=== PATIENT | male | born 1940 | race Caucasian/White ===

== ENCOUNTER → 2016-12-03 | Outpatient (CLI) | payer OTHER ==
[2016-12-03 18:17] LABS: BASO % 0.2 %; BASO ABS # 0.02 K/uL (0-0.2); COMPLETE YES; EOS % 0.9 %; HEMATOCRIT 46.7 % (42-52); IG% 0.2 %; LYMPH % 20.6 %; MEAN CELL VOLUME 91.9 fL (80-100); MEAN CORPUSCULAR HEMOGLOBIN 32.1 pg (25-34); MEAN CORPUSCULAR HGB CONC 34.9 g/dl (32-36); MEAN PLATELET VOLUME 11.1 fL (7.4-10.4); NEUT % 66.1 %; PLATELET COUNT 171 K/uL (130-400); RED BLOOD COUNT 5.08 M/uL (4.7-6.1); WHITE BLOOD COUNT 8.73 K/uL (4.8-10.8)
[2016-12-03 18:24] LABS: ALT/SGPT 37 U/L (12-78); BLOOD UREA NITROGEN 14 mg/dl (7-18); BUN/CREATININE RATIO 14.5 (10-20); CALCIUM 9.4 mg/dl (8.5-10.1); CARBON DIOXIDE 25 mmol/L (21-32); CHLORIDE 104 mmol/L (98-107); CHOLESTEROL 187 mg/dl (0-200); CREATININE 0.99 mg/dl (0.60-1.40); GLUCOSE 127 mg/dl (70-99); POTASSIUM 4.4 mmol/L (3.5-5.1); SODIUM 138 mmol/L (136-145)
[2016-12-03 18:27] LABS: ALB/GLOB RATIO 1.1 (0.9-2); ALKALINE PHOSPHATASE 81 U/L (45-117); AST/SGOT 24 U/L (15-37); CHOLESTEROL/HDL RATIO 4.5; HDL CHOLESTEROL 42 mg/dl; LDL CHOLESTEROL CALCULATED 94 mg/dl; TRIGLYCERIDES 255 mg/dl (0-150); VERY LOW DENSITY LIPOPROT CALC 51 mg/dl
[2016-12-04 06:28] LABS: ESTIMATED AVERAGE GLUCOSE 143 mg/dl; HA1C FLAG Normal (Normal)
== END | disposition home or self-care (01) ==
LOC: C.LABSPEC 17:50
PROVIDERS: ATTEND Family Medicine
DX: E11.9 Type 2 diabetes mellitus without complications (principal); I10 Essential (primary) hypertension; E78.2 Mixed hyperlipidemia

== ENCOUNTER → 2017-06-08 | Outpatient (CLI) | payer OTHER ==
[2017-06-08 13:43] LABS: BASO % 0.3 %; BASO ABS # 0.02 K/uL (0-0.2); COMPLETE YES; EOS % 2.4 %; HEMATOCRIT 47.1 % (42-52); IG% 0.3 %; LYMPH % 22.7 %; LYMPH ABS # 1.52 K/uL (1.2-3.4); MEAN CELL VOLUME 93.6 fL (80-100); MEAN CORPUSCULAR HEMOGLOBIN 31.2 pg (25-34); MEAN CORPUSCULAR HGB CONC 33.3 g/dl (32-36); MEAN PLATELET VOLUME 11.2 fL (7.4-10.4); MONO % 13.1 %; NEUT % 61.2 %; PLATELET COUNT 145 K/uL (130-400); RED BLOOD COUNT 5.03 M/uL (4.7-6.1); WHITE BLOOD COUNT 6.71 K/uL (4.8-10.8)
[2017-06-08 14:30] LABS: ALT/SGPT 45 U/L (12-78); AST/SGOT 24 U/L (15-37); BLOOD UREA NITROGEN 15 mg/dl (7-18); BUN/CREATININE RATIO 15.2 (10-20); CALCIUM 8.9 mg/dl (8.5-10.1); CARBON DIOXIDE 24 mmol/L (21-32); CHLORIDE 107 mmol/L (98-107); GLUCOSE 155 mg/dl (70-99); POTASSIUM 4.2 mmol/L (3.5-5.1); SODIUM 138 mmol/L (136-145)
[2017-06-08 14:33] LABS: ALB/GLOB RATIO 0.9 (0.9-2); ALKALINE PHOSPHATASE 94 U/L (45-117); CHOLESTEROL 135 mg/dl (0-200); CHOLESTEROL/HDL RATIO 3.5; HDL CHOLESTEROL 39 mg/dl; TRIGLYCERIDES 410 mg/dl (0-150)
== END | disposition home or self-care (01) ==
LOC: C.LABSPEC 13:06
PROVIDERS: ATTEND Family Medicine
DX: E11.9 Type 2 diabetes mellitus without complications (principal); E78.2 Mixed hyperlipidemia; I10 Essential (primary) hypertension

== ENCOUNTER → 2017-12-07 | Outpatient (CLI) | payer OTHER ==
[2017-12-07 14:30] LABS: BASO % 0.4 %; BASO ABS # 0.03 K/uL (0-0.2); EOS % 3.2 %; EOS ABS # 0.22 K/uL (0-0.5); HEMATOCRIT 45.9 % (42-52); HEMOGLOBIN 15.6 g/dL (14.0-18.0); IG# 0.02 K/uL (0.00-0.02); LYMPH % 25.8 %; LYMPH ABS # 1.79 K/uL (1.2-3.4); MEAN CELL VOLUME 93.9 fL (80-100); MEAN CORPUSCULAR HEMOGLOBIN 31.9 pg (25-34); MEAN PLATELET VOLUME 12.1 fL (7.4-10.4); MONO % 11.7 %; MONO ABS # 0.81 K/uL (0.11-0.59); NEUT % 58.6 %; NEUT ABS # 4.06 K/uL (1.4-6.5); PLATELET COUNT 142 K/uL (130-400); RED CELL DISTRIBUTION WIDTH CV 14.4 % (11.5-14.5); RED CELL DISTRIBUTION WIDTH SD 48.8 fL (36.4-46.3); WHITE BLOOD COUNT 6.93 K/uL (4.8-10.8)
[2017-12-07 14:52] LABS: ALBUMIN 3.6 gm/dl (3.4-5.0); ALT/SGPT 41 U/L (12-78); AST/SGOT 27 U/L (15-37); BLOOD UREA NITROGEN 13 mg/dl (7-18); CALCIUM 9.2 mg/dl (8.5-10.1); CARBON DIOXIDE 26 mmol/L (21-32); CHOLESTEROL 139 mg/dl (0-200); CREATININE 1.03 mg/dl (0.60-1.40); GLUCOSE 133 mg/dl (70-99); POTASSIUM 4.5 mmol/L (3.5-5.1); SODIUM 137 mmol/L (136-145)
[2017-12-07 14:55] LABS: ALKALINE PHOSPHATASE 83 U/L (45-117); LDL CHOLESTEROL CALCULATED 53 mg/dl; TOTAL PROTEIN 7.4 gm/dl (6.4-8.2)
[2017-12-08 06:59] LABS: HEMOGLOBIN A1C 6.3 % (4.5-5.6)
== END | disposition home or self-care (01) ==
LOC: C.LABSPEC 13:05
PROVIDERS: ATTEND Family Medicine
DX: E11.9 Type 2 diabetes mellitus without complications (principal); E78.2 Mixed hyperlipidemia; I10 Essential (primary) hypertension

== ENCOUNTER 2023-06-18 22:48 | Observation (INO) ==
[2023-06-19] MEDS ORDERED: SODIUM CHLORIDE 0.9% 500 ML IV ONE (00:03)
--- NOTE | 2023-06-19 00:47 | Emergency Department Note ---
Impression & Plan Weakness, Acute alteration in mental status, Ambulatory dysfunction Admit to the [facility] ED Provider Note NAME: JOSIANE BARAJAS AGE: 82 SEX: Male INFORMANT: Patient and his niece ED PROVIDER(S): Charito Adair DO CHIEF COMPLAINT: Slurred speech; dizziness; falls PLAN: Disposition: Admit to the [facility] MEDICAL DECISION MAKING: This is an 82-year-old male patient who presents to the emergency department with increasing slurred speech, altered mental status, dizziness, and staring spells. Most of history is obtained from the patient's niece who is at the bedside. The patient was evaluated at [facility] 2 days ago and admitted there overnight. He was discharged today. During that admission, the patient did have a CT scan of his brain and cervical spine which were negative. Laboratory studies were unremarkable. He underwent carotid ultrasounds as well as echocardiogram which were both essentially unremarkable. Unfortunately, the patient's mental status seemed to decline again tonight. CT scan of the head performed again today because they were unsure if he fell again at home. This was negative. Laboratory studies revealed no leukocytosis or anemia. Glucose was 127. There was normal renal function and normal electrolytes. Urinalysis was unremarkable. I discussed the case with the [facility] and they will evaluate for further inpatient care. Care/management discussed with: The patient's niece; logistics engineering manager; [facility] Level of care consideration(s): After review of the information above and other included data, I feel the patient requires escalation of care to admission. He is unsteady on his feet and risks falling again. He does have an altered mental status at times. Triage Nursing notes: Reviewed and agree them. Vital Signs: reviewed and remarkable for bradycardia Additional History obtained from: The patient's niece who is at the bedside Chronic Medical/Social Conditions affecting care: Patient lives alone Prior /Outside records reviewed: Epic records from his admission at [facility] Differential Diagnosis: Subdural hematoma, hyponatremia, hypoglycemia, dehydration, [facility] Diagnostics, independently interpreted by me: ECG: Normal sinus rhythm at a rate of 61 with T wave inversions in the anterior leads. This was compared to an EKG from [facility]-06/17/2023. The T wave inversion is new. However, in that previous EKG, the made comment that T wave inversion had been present previously. Cardiac Monitoring: Sinus bradycardia at a rate of 58 Imaging studies: CT scan of the brain: As per stat rad HPI: 82 year old Male arrives for evaluation of altered mental status. Over the past 5-7 days, the patient has had episodes of altered mental status, slurred speech, dizziness, lightheadedness, and increased falls. Most of the history was obtained from the patient's niece who is at the bedside. She explains that the patient has had a drastic change in his mental status past 1 week. He was seen at [place] emergency department 2 days ago and admitted overnight. PAST MEDICAL HISTORY: Type 2 diabetes, hypertension, right-sided lung cancer, thoracic aortic aneurysm, SOCIAL HISTORY: Patient lives alone, he smokes pipe daily. 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 This appears to be old. Pupils are equal, round, and reactive to light. Extraocular eye muscles are intact, and sclera are anicteric. Nose - moist nasal mucosa without discharge. Mouth - moist buccal mucosa. Oropharynx is nonerythematous and there is no tonsillar exudate or edema noted. Neck: Supple; no JVD or cervical lymphadenopathy Heart: Bradycardic rate and regular rhythm. THere is a normal S1 and S2 with no murmurs, clicks, or gallops appreciated. Lungs: Clear to auscultation bilaterally with no wheezes, rales, or rhonchi. Abdomen: Soft, completely nontender, nondistended, with good bowel sounds. There are no palpable pulsatile masses or hepatosplenomegaly. There is no guarding, rigidity, or rebound noted. Extremities: No evidence of cyanosis, clubbing, or edema. There are easily palpable peripheral pulses. Skin: warm and dry with poor turgor and no rashes. Neuro: The patient is slow to answer questions. He does answer them appropriately with regards to person and place but is confused about time. He is moving all 4 extremities. His muscle strength is 5 out of 5 in all 4 extremities. Cranial nerves II through XII are intact. He has difficulty with cerebellar testing. ED course: The patient was evaluated in room B8. A complete history and physical was performed. An order was placed for continuous cardiac monitoring. The patient is in a sinus bradycardia at a rate of 58. A twelve-lead EKG was obtained as described above. Patient went for CT scan of the brain. A urine specimen was obtained. Patient was bolused with IV normal saline solution as he appeared dehydrated on physical exam. I discussed the case with the [facility] Hospitalist and they will evaluate for further inpatient care. 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 Required: No Beliefs That Will Affect Care: None Current Living Situation: Alone Feels Safe at Home: Yes Safety Concerns: Feels Safe At This Time Assistive Devices: Denture - Upper, Denture - Lower and Walker Allergies Allergies Allergy/AdvReac Type Severity Reaction Status Date / Time No Known Allergies Allergy Unverified 06/19/23 11:39 Home Meds Home Medications Medication Instructions Recorded Confirmed aspirin 81 mg tablet,delayed 81 mg PO DAILY 06/19/23 06/19/23 release insulin aspart U-100 100 unit/mL 1 sliding scale dose subcut 06/19/23 06/19/23 (3 mL) subcutaneous pen (Novolog USEASDIRECTD FlexPen U-100 Insulin aspart) insulin detemir U-100 100 unit/mL 29 unit subcut HS 06/19/23 06/19/23 subcutaneous solution (Levemir U-100 Insulin) lisinopril 5 mg tablet 5 mg PO DAILY 06/19/23 06/19/23 metoprolol tartrate 25 mg tablet 25 mg PO BID 06/19/23 06/19/23 omega 1-dwc-qek-fish oil 1,000 mg 1 cap PO DAILY 06/19/23 06/19/23 (120 mg-180 mg) capsule (Fish Oil) pravastatin 40 mg tablet 40 mg PO DAILY 06/19/23 06/19/23 Results & Data (ED) Vital Signs Vital Signs - 24 hr 06/19/23 06:04 06/19/23 06:04 06/19/23 06:04 Pulse Rate 57 L 61 Pulse Rate from SpO2 Sensor 60 Respiratory Rate 16 Blood Pressure 131/74 Blood Pressure Mean 94 Pulse Oximetry 93 06/19/23 06:10 06/19/23 06:20 06/19/23 06:30 Pulse Rate 57 L 63 Pulse Rate from SpO2 Sensor 58 L 63 Respiratory Rate 18 20 28 H Blood Pressure Blood Pressure Mean Pulse Oximetry 95 99 06/19/23 06:40 06/19/23 07:00 Pulse Rate 53 L Pulse Rate from SpO2 Sensor 54 L Respiratory Rate 22 24 Blood Pressure Blood Pressure Mean Pulse Oximetry 98 Laboratory Data 06/18/23 23:30 06/18/23 23:30 Lab Results 06/18/23 06/18/23 06/19/23 Range/Units 23:30 23:30 03:50 WBC 8.44 (4.8-10.8) K/ul RBC 4.33 L (4.70-6.10) M/uL Hgb 14.2 (14.0-18.0) g/dl Hct 39.9 L (42.0-52.0) % MCV 92.1 (80.0-100.0) fL MCH 32.8 (25.0-34.0) pg MCHC 35.6 (32.0-36.0) g/dL RDW Std Deviation 44.7 (36.4-46.3) fL RDW Coeff of Lexie 13.2 (11.5-14.5) % Plt Count 157 (130-400) K/uL MPV 11.9 (9.4-12.4) fL Immature Gran % (Auto) 0.4 % Neut % (Auto) 61.6 % Lymph % (Auto) 24.5 % [place] % (Auto) 12.0 % Eos % (Auto) 1.1 % Baso % (Auto) 0.4 % Neut # (Auto) 5.21 (1.40-6.50) K/uL Lymph # (Auto) 2.07 (1.20-3.40) K/uL [place] # (Auto) 1.01 H (0.11-0.59) K/uL Eos # (Auto) 0.09 (0.00-0.50) K/uL Baso # (Auto) 0.03 (0.00-0.20) K/uL Immature Gran # (Auto) 0.03 (0.01-0.20) K/uL Sodium 133 L (136-145) mmol/L Potassium 3.8 (3.5-5.1) mmol/L Chloride 103 (98-107) mmol/L Carbon Dioxide 21 (21-32) mmol/L Anion Gap 9 (3-11) BUN 17 (6-23) mg/dl Creatinine 0.88 (0.6-1.4) mg/dl Est Cr Clr Drug Dosing Not Reportable Est GFR ( Amer) 94.0 ml/min Est GFR (Non-Af Amer) 81.1 ml/min BUN/Creatinine Ratio 19.3 (10-20) Glucose 187 H (70-99(Fasting)) mg/dl Calcium 9.1 (8.6-10.3) mg/dl Total Bilirubin 0.5 (0.2-1.0) mg/dl AST 35 (13-39) U/L ALT 34 (7-52) U/L Alkaline Phosphatase 89 (34-104) U/L Total Protein 6.5 (6.0-8.3) gm/dl Albumin 3.6 (3.4-5.0) gm/dl Globulin 2.9 (2.5-4.0) gm/dl Albumin/Globulin Ratio 1.2 (0.9-2) Urine Color Yellow Urine Appearance Clear (Clear) Urine pH 5.0 (4.5-7.5) Ur Specific Slemp 1.010 (1.000-1.030) Urine Protein Negative (Negative) Urine Glucose (UA) Negative (Negative) Urine Ketones Negative (Negative) Urine Blood Negative (Negative) Urine Nitrite Negative (Negative) Urine Bilirubin Negative (Negative) Urine Urobilinogen Negative (Negative) Ur Leukocyte Esterase Negative (Negative) Administered Medications Aspirin (Aspirin 81 Mg Ectab) 81 mg PO DAILY [facility] Stop: 07/19/23 09:32 Last Admin: 06/19/23 13:27 Dose: 81 mg Documented By: CAMILLE Insulin Aspart (Insulin Aspart Per Unit Charge) 0 units SC ACHS PRINCE Stop: 07/19/23 09:32 Last Admin: 06/19/23 20:26 Dose: Not Given Documented By: Admin: 06/19/23 18:03 Dose: 3 units Documented By: CAMILLE Co-signed By: RYAN Admin: 06/19/23 13:06 Dose: Not Given Documented By: Admin: 06/19/23 11:41 Dose: Not Given Documented By: CAMILLE Insulin Glargine (Lantus Per Unit Charge) 29 units SQ HS PRINCE Stop: 07/19/23 20:59 Last Admin: 06/19/23 21:54 Dose: 29 units Documented By: VINOD Co-signed By: JONATHAN Lisinopril (Lisinopril 5 Mg Tab) 5 mg PO DAILY PRINCE Stop: 07/19/23 09:32 Last Admin: 06/19/23 13:27 Dose: 5 mg Documented By: CAMILLE Metoprolol Tartrate (Metoprolol Tartrate 25 Mg Tab) 25 mg PO BID PRINCE Stop: 07/19/23 09:32 Last Admin: 06/19/23 21:55 Dose: Not Given Documented By: Admin: 06/19/23 13:27 Dose: 25 mg Documented By: CAMILLE Pravastatin Sodium (Pravastatin Sod 40 Mg Tab) 40 mg PO DAILY PRINCE Stop: 07/19/23 09:32 Last Admin: 06/19/23 13:27 Dose: 40 mg Documented By: CAMILLE Trazodone HCl (Trazodone Hcl 100 Mg Tab) 200 mg PO HS PRINCE Stop: 07/19/23 20:59 Last Admin: 06/19/23 21:55 Dose: 200 mg Documented By: VINOD Discontinued Medications Gadobutrol (Gadobutrol 65ml Vial) 8.1 ml IV ONCE ONE Stop: 06/19/23 10:46 Last Admin: 06/19/23 10:44 Dose: 8.1 ml Documented By: HIEN Sodium Chloride (Nss) 500 mls @ 999 mls/hr IV .Q31M ONE Stop: 06/19/23 00:33 Last Infusion: 06/19/23 01:12 Dose: 0 mls/hr Documented By: Admin: 06/19/23 00:37 Dose: 999 mls/hr Documented By: JAVON Sodium Chloride (Nss) 1,000 mls @ 75 mls/hr IV .[id number] PRINCE Stop: 06/19/23 22:52 Last Infusion: 06/20/23 02:06 Dose: 0 mls/hr Documented By: Infusion: 06/20/23 02:05 Dose: 0 mls/hr Documented By: Infusion: 06/19/23 14:58 Dose: 75 mls/hr Documented By: Infusion: 06/19/23 13:35 Dose: 0 mls/hr Documented By: Admin: 06/19/23 11:25 Dose: 75 mls/hr Documented By: CAMILLE Miscellaneous Information (Patient's Allergy Info Needs Entered) 1 each N/A Q30M PRINCE Stop: 07/19/23 09:44 Last Admin: 06/19/23 13:29 Dose: Not Given Documented By: Admin: 06/19/23 13:29 Dose: Not Given Documented By: Admin: 06/19/23 13:29 Dose: Not Given Documented By: Admin: 06/19/23 13:29 Dose: Not Given Documented By: Admin: 06/19/23 13:29 Dose: Not Given Documented By: Admin: 06/19/23 13:29 Dose: Not Given Documented By: Admin: 06/19/23 13:27 Dose: 1 each Documented By: Admin: 06/19/23 11:39 Dose: 1 each Documented By: CAMILLE Imaging Data Radiologist's Impression: Head CT 06/19/23 00:03 Exam(s): CT HEAD Without Contrast EXAM: CT Head Without Intravenous Contrast CLINICAL HISTORY: altered mental status; h/o falls. TECHNIQUE: Axial computed tomography images of the head/brain without intravenous contrast. CTDI is 36.62 mGy and DLP is 625.8 mGy-cm. Automated exposure control was utilized for the study. A dose lowering technique was utilized adhering to the principles of ALARA. COMPARISON: No relevant prior studies available. FINDINGS: Brain: Underlying parenchymal involutional changes are noted with prominence of the cerebral sulci and sylvian fissures. There is predominantly periventricular deep white matter hypodense changes noted bilaterally. No intracranial hemorrhage. No significant mass effect. No evidence for cortical infarct. Ventricles: Unremarkable. No ventriculomegaly. Bones/joints: Unremarkable. No acute fracture. Soft tissues: No significant overlying acute traumatic soft tissue abnormality identified. Sinuses: Unremarkable as visualized. No acute sinusitis. Mastoid air cells: Unremarkable as visualized. No mastoid effusion. IMPRESSION: No acute intracranial process identified. Electronically signed by: Anthony Bedolla MD 06/19/23 02:54 AM Discharge Plan Visit Data Chief Complaint: TIA Symptoms Stated Complaint: SLURRED SPEACH, LOSS OF BALANCE ED Provider: Charito Adair Discharge Problem: Weakness, Acute alteration in mental status, Ambulatory dysfunction Patient Disposition: Admitted As Inpatient Discharge Instructions Interventions: ED Discharge Assessment Last Done: 06/19/23 09:33
[2023-06-19 00:49] LABS: Basophils # (auto) 0.03 K/uL (0.00-0.20); Basophils % (auto) 0.4 %; Eosinophils # (auto) 0.09 K/uL (0.00-0.50); Eosinophils % (auto) 1.1 %; Hematocrit (blood only) 39.9 % (42.0-52.0); Hemoglobin 14.2 g/dl (14.0-18.0); Immature Granulocytes # (auto) 0.03 K/uL (0.01-0.20); Immature Granulocytes % (auto) 0.4 %; Lymphocytes # (auto) 2.07 K/uL (1.20-3.40); Lymphocytes % (auto) 24.5 %; Mean Corpuscular Hemoglobin 32.8 pg (25.0-34.0); Mean Corpuscular Hgb Conc 35.6 g/dL (32.0-36.0); Mean Corpuscular Volume 92.1 fL (80.0-100.0); Mean Platelet Volume 11.9 fL (9.4-12.4); Monocytes # (auto) 1.01 K/uL (0.11-0.59); Neutrophils # (auto) 5.21 K/uL (1.40-6.50); Neutrophils % (auto) 61.6 %; Platelet Count 157 K/uL (130-400); RDW Coefficient of Variation 13.2 % (11.5-14.5); RDW Standard Deviation 44.7 fL (36.4-46.3); Red Blood Count 4.33 M/uL (4.70-6.10); White Blood Count 8.44 K/ul (4.8-10.8)
--- NOTE | 2023-06-19 02:55 | CT Scan Report ---
Exam(s): CT HEAD Without Contrast EXAM: CT Head Without Intravenous Contrast CLINICAL HISTORY: altered mental status; h/o falls. TECHNIQUE: Axial computed tomography images of the head/brain without intravenous contrast. CTDI is 36.62 mGy and DLP is 625.8 mGy-cm. Automated exposure control was utilized for the study. A dose lowering technique was utilized adhering to the principles of ALARA. COMPARISON: No relevant prior studies available. FINDINGS: Brain: Underlying parenchymal involutional changes are noted with prominence of the cerebral sulci and sylvian fissures. There is predominantly periventricular deep white matter hypodense changes noted bilaterally. No intracranial hemorrhage. No significant mass effect. No evidence for cortical infarct. Ventricles: Unremarkable. No ventriculomegaly. Bones/joints: Unremarkable. No acute fracture. Soft tissues: No significant overlying acute traumatic soft tissue abnormality identified. Sinuses: Unremarkable as visualized. No acute sinusitis. Mastoid air cells: Unremarkable as visualized. No mastoid effusion. IMPRESSION: No acute intracranial process identified. Electronically signed by: Anthony Bedolla MD 06/19/23 02:54 AM
[2023-06-19 03:20] LABS: Potassium 3.8 mmol/L (3.5-5.1)
[2023-06-19 03:25] LABS: Aspartate Aminotransferase 35 U/L (13-39)
[2023-06-19 03:40] LABS: Alanine Aminotransferase 34 U/L (7-52); Albumin Globulin Ratio 1.2 (0.9-2); Albumin Level 3.6 gm/dl (3.4-5.0); Alkaline Phosphatase 89 U/L (34-104); Anion Gap 9 (3-11); BUN Creatinine Ratio 19.3 (10-20); Bilirubin,Total 0.5 mg/dl (0.2-1.0); Blood Urea Nitrogen 17 mg/dl (6-23); Calcium 9.1 mg/dl (8.6-10.3); Carbon Dioxide 21 mmol/L (21-32); Chloride 103 mmol/L (98-107); Est GFR (Non-African American) 81.1 ml/min; Globulin 2.9 gm/dl (2.5-4.0); Glucose 187 mg/dl (70-99(Fasting)); Sodium 133 mmol/L (136-145); Total Protein 6.5 gm/dl (6.0-8.3)
[2023-06-19 04:15] LABS: Appearance Urine Clear (Clear); Bilirubin Urine Negative (Negative); Blood Urine Negative (Negative); Color Urine Yellow; Glucose Urine UA Negative (Negative); Ketones Urine Negative (Negative); Leukocyte Esterase Urine Negative (Negative); Nitrite Urine Negative (Negative); Protein Urine Negative (Negative); Urobilinogen Urine Negative (Negative)
--- NOTE | 2023-06-19 09:13 | History & Physical Report ---
Date of Service June 19, 2023 Assessment & Plan (1) Imbalance: Plan: 82-year-old male with past medical significant for type 2 diabetes, lung cancer, thoracic aortic aneurysm, hypertension, tobacco use, ambulate dysfunction, lives alone at home ambulates with a walker sister and nieces lives close by is brought in by niece because of frequent falls and imbalance. Imbalance frequent falls Recently was in [facility], work-up unremarkable with CT head, carotid Doppler and echo We will get MRI head PT OT If any findings on MRI scan or if no improvement will consult neurology On aspirin Close monitor Type 2 diabetes On Levemir Insulin sliding scale We will monitor Hypertension on lisinopril and metoprolol We will monitor Hyperlipidemia On statin Lung cancer Following with [facility] under observation DVT prophylaxis SCDs Disposition med/telemetry Full code History of Present Illness Chief Complaint: Falls and imbalance Primary Care Provider: Juanito De Dios DO 82-year-old male with past medical significant for type 2 diabetes, lung cancer, thoracic aortic aneurysm, hypertension, tobacco use, ambulate dysfunction, lives alone at home ambulates with a walker sister and nieces lives close by is brought in by niece because of frequent falls and imbalance. Patient was admitted to [facility] on June 17 and discharged on June for similar problem. Looks like he fell 5 times in the last past 1 week seem while standing gets lightheaded and becomes off balance and falls. Hit his head but no loss of consciousness. At [facility] had CT head, carotid Doppler and echo which were unremarkable. Seen by cardiology and neurology and plan for Zio patch as outpatient. Got discharged but his symptoms did not improve. Says is not ambulating much because of the imbalance and falls. Initially had some difficulty speaking. Currently patient speech seems okay. No headache. No runny nose or sore throat. No difficulty swallowing. Appetite is good. No fevers. No chest pain or shortness of breath. No nausea or vomiting. No abdom inal pain. Normal bowel and bladder movements. Past medical history. As mentioned above Past surgical history. No surgical history on file Social history. Smokes pipe. No alcohol. No drug use. Family history. Sister had AAA. Brother had lower extremity aneurysm. Home Medications Medication Instructions Recorded Confirmed Type aspirin 81 mg tablet,delayed 81 mg PO DAILY 06/19/23 06/19/23 History release insulin aspart U-100 100 unit/mL 1 sliding scale dose subcut 06/19/23 06/19/23 History (3 mL) subcutaneous pen (Novolog USEASDIRECTD FlexPen U-100 Insulin aspart) insulin detemir U-100 100 unit/mL 29 unit subcut HS 06/19/23 06/19/23 History subcutaneous solution (Levemir U-100 Insulin) lisinopril 5 mg tablet 5 mg PO DAILY 06/19/23 06/19/23 History metoprolol tartrate 25 mg tablet 25 mg PO BID 06/19/23 06/19/23 History omega 1-bnt-njm-fish oil 1,000 mg 1 cap PO DAILY 06/19/23 06/19/23 History (120 mg-180 mg) capsule (Fish Oil) pravastatin 40 mg tablet 40 mg PO DAILY 06/19/23 06/19/23 History Past Med/Surg History Social History Smoking Status: Never smoker Preferred Language: Czech Feels Safe at Home: Yes Review of Systems Review of Systems: All systems reviewed & are unremarkable except as noted in HPI & below Physical Exam Physical Exam: General- Not in distress Head- atraumatic Eyes- PERRL.EMOI ENT- oropharynx clear Neck- supple, no JVD. Lungs- clear to auscultation no wheezing or crackles. Heart- regular rhythm; no murmur, no gallop. Abdomen- normal bowel sounds, soft, nontender, no distension Extremities- no pretibial edema, no erythema seen. Neuro- alert, oriented x 3; PERRL, EOMI; no facial palsy; no dysarthria; motor 5/5 bilaterally; no pronator drift, co-ordination of movements normal. sensations intact. Skin- warm & dry Results & Data Results & Data Vital Signs (Past 12 Hours) Vital Signs Temp Pulse Pulse Resp BP BP Pulse Ox 06/19/23 06:40 53 L 22 98 06/19/23 06:30 63 28 H 99 06/19/23 06:20 57 L 20 95 06/19/23 06:10 18 06/19/23 06:04 61 16 93 06/19/23 06:04 131/74 06/19/23 06:00 67 17 91 06/19/23 05:50 60 17 06/19/23 05:40 55 L 20 92 06/19/23 05:30 55 L 17 94 06/19/23 05:20 57 L 21 94 06/19/23 05:10 58 L 22 95 06/19/23 05:00 23 94 06/19/23 04:50 54 L 20 93 06/19/23 04:40 56 L 20 94 06/19/23 04:30 59 L 16 96 06/19/23 04:20 52 L 19 95 06/19/23 04:10 53 L 17 96 06/19/23 04:00 55 L 22 94 06/19/23 03:50 54 L 15 95 06/19/23 03:40 51 L 15 96 06/19/23 03:30 56 L 24 96 06/19/23 03:20 53 L 18 95 06/19/23 03:10 54 L 23 95 06/19/23 03:00 57 L 16 95 06/19/23 02:50 57 L 21 96 06/19/23 02:43 56 L 24 95 06/19/23 02:43 114/72 06/19/23 02:40 57 L 14 96 06/19/23 02:30 53 L 19 95 06/19/23 02:20 54 L 16 96 06/19/23 02:10 54 L 19 96 06/19/23 02:00 54 L 18 94 06/19/23 01:50 53 L 22 95 06/19/23 01:40 64 21 94 06/19/23 01:30 55 L 24 96 06/19/23 01:20 54 L 19 93 06/19/23 01:10 60 16 97 06/19/23 01:00 56 L 21 94 06/19/23 00:50 55 L 21 92 06/19/23 00:40 58 L 22 93 06/19/23 00:33 131 H 19 06/19/23 00:20 56 L 22 95 06/19/23 00:10 63 22 93 06/19/23 00:00 59 L 24 100 06/18/23 23:50 60 24 94 06/18/23 23:40 61 26 H 92 06/18/23 23:31 58 L 21 91 06/19/23 06:04 57 L 06/19/23 06:00 59 L 16 91 06/19/23 04:00 58 L 16 114/72 98 06/19/23 02:30 57 L 20 114/72 97 06/19/23 00:53 59 L 18 136/83 94 06/18/23 23:31 58 L 06/18/23 22:51 36.5 C 69 16 123/78 95 O2 Del Method 06/19/23 06:40 06/19/23 06:30 06/19/23 06:20 06/19/23 06:10 06/19/23 06:04 06/19/23 06:04 06/19/23 06:00 06/19/23 05:50 06/19/23 05:40 06/19/23 05:30 06/19/23 05:20 06/19/23 05:10 06/19/23 05:00 06/19/23 04:50 06/19/23 04:40 06/19/23 04:30 06/19/23 04:20 06/19/23 04:10 06/19/23 04:00 06/19/23 03:50 06/19/23 03:40 06/19/23 03:30 06/19/23 03:20 06/19/23 03:10 06/19/23 03:00 06/19/23 02:50 06/19/23 02:43 06/19/23 02:43 06/19/23 02:40 06/19/23 02:30 06/19/23 02:20 06/19/23 02:10 06/19/23 02:00 06/19/23 01:50 06/19/23 01:40 06/19/23 01:30 06/19/23 01:20 06/19/23 01:10 06/19/23 01:00 06/19/23 00:50 06/19/23 00:40 06/19/23 00:33 06/19/23 00:20 06/19/23 00:10 06/19/23 00:00 06/18/23 23:50 06/18/23 23:40 06/18/23 23:31 06/19/23 06:04 06/19/23 06:00 Room Air 06/19/23 04:00 Room Air 06/19/23 02:30 Room Air 06/19/23 00:53 Room Air 06/18/23 23:31 06/18/23 22:51 Room Air Diagnostic Findings Laboratory Results WBC 8.44 K/ul (4.8-10.8) 06/18/23 23:30 RBC 4.33 M/uL (4.70-6.10) L 06/18/23 23:30 Hgb 14.2 g/dl (14.0-18.0) 06/18/23 23:30 Hct 39.9 % (42.0-52.0) L 06/18/23 23:30 MCV 92.1 fL (80.0-100.0) 06/18/23 23:30 MCH 32.8 pg (25.0-34.0) 06/18/23 23: MCHC 35.6 g/dL (32.0-36.0) 06/18/23 23:30 RDW Std Deviation 44.7 fL (36.4-46.3) 06/18/23 23:30 RDW Coeff of Lexie 13.2 % (11.5-14.5) 06/18/23 23: Plt Count 157 K/uL (130-400) 06/18/23 23: MPV 11.9 fL (9.4-12.4) 06/18/23 23:30 Immature Gran % (Auto) 0.4 % 06/18/23 23: Neut % (Auto) 61.6 % 06/18/23 23:30 Lymph % (Auto) 24.5 % 06/18/23 23:30 Dillon % (Auto) 12.0 % 06/18/23 23: Eos % (Auto) 1.1 % 06/18/23 23: Baso % (Auto) 0.4 % 06/18/23 23:30 Neut # (Auto) 5.21 K/uL (1.40-6.50) 06/18/23 23:30 Lymph # (Auto) 2.07 K/uL (1.20-3.40) 06/18/23 23:30 Dillon # (Auto) 1.01 K/uL (0.11-0.59) H 06/18/23 23:30 Eos # (Auto) 0.09 K/uL (0.00-0.50) 06/18/23 23:30 Baso # (Auto) 0.03 K/uL (0.00-0.20) 06/18/23 23:30 Immature Gran # (Auto) 0.03 K/uL (0.01-0.20) 06/18/23 23:30 Sodium 133 mmol/L (136-145) L 06/18/23 23:30 Potassium 3.8 mmol/L (3.5-5.1) 06/18/23 23:30 Chloride 103 mmol/L (98-107) 06/18/23 23:30 Carbon Dioxide 21 mmol/L (21-32) 06/18/23 23:30 Anion Gap 9 (3-11) 06/18/23 23:30 BUN 17 mg/dl (6-23) 06/18/23 23:30 Creatinine 0.88 mg/dl (0.6-1.4) 06/18/23 23:30 Est Cr Clr Drug Dosing Not Reportable 06/18/23 23:30 Est GFR ( Amer) 94.0 ml/min 06/18/23 23:30 Est GFR (Non-Af Amer) 81.1 ml/min 06/18/23 23:30 BUN/Creatinine Ratio 19.3 (10-20) 06/18/23 23:30 Glucose 187 mg/dl (70-99(Fasting)) H 06/18/23 23:30 Calcium 9.1 mg/dl (8.6-10.3) 06/18/23 23:30 Total Bilirubin 0.5 mg/dl (0.2-1.0) 06/18/23 23:30 AST 35 U/L (13-39) 06/18/23 23:30 ALT 34 U/L (7-52) 06/18/23 23:30 Alkaline Phosphatase 89 U/L (34-104) 06/18/23 23:30 Total Protein 6.5 gm/dl (6.0-8.3) 06/18/23 23:30 Albumin 3.6 gm/dl (3.4-5.0) 06/18/23 23:30 Globulin 2.9 gm/dl (2.5-4.0) 06/18/23 23:30 Albumin/Globulin Ratio 1.2 (0.9-2) 06/18/23 23:30 Urine Color Yellow 06/19/23 03:50 Urine Appearance Clear (Clear) 06/19/23 03:50 Urine pH 5.0 (4.5-7.5) 06/19/23 03:50 Ur Specific [place] 1.010 (1.000-1.030) 06/19/23 03:50 Urine Protein Negative (Negative) 06/19/23 03:50 Urine Glucose (UA) Negative (Negative) 06/19/23 03:50 Urine Ketones Negative (Negative) 06/19/23 03:50 Urine Blood Negative (Negative) 06/19/23 03:50 Urine Nitrite Negative (Negative) 06/19/23 03:50 Urine Bilirubin Negative (Negative) 06/19/23 03:50 Urine Urobilinogen Negative (Negative) 06/19/23 03:50 Ur Leukocyte Esterase Negative (Negative) 06/19/23 03:[address] 06/19/23 00:03 Exam(s): CT HEAD Without Contrast EXAM: CT Head Without Intravenous Contrast CLINICAL HISTORY: altered mental status; h/o falls. TECHNIQUE: Axial computed tomography images of the head/brain without intravenous contrast. CTDI is 36.62 mGy and DLP is 625.8 mGy-cm. Automated exposure control was utilized for the study. A dose lowering technique was utilized adhering to the principles of ALARA. COMPARISON: No relevant prior studies available. FINDINGS: Brain: Underlying parenchymal involutional changes are noted with prominence of the cerebral sulci and sylvian fissures. There is predominantly periventricular deep white matter hypodense changes noted bilaterally. No intracranial hemorrhage. No significant mass effect. No evidence for cortical infarct. Ventricles: Unremarkable. No ventriculomegaly. Bones/joints: Unremarkable. No acute fracture. Soft tissues: No significant overlying acute traumatic soft tissue abnormality identified. Sinuses: Unremarkable as visualized. No acute sinusitis. Mastoid air cells: Unremarkable as visualized. No mastoid effusion. IMPRESSION: No acute intracranial process identified. Electronically signed by: Anthony Bedolla MD 06/19/23 02:54 AM ECG Additional Comments: ECG. Normal sinus rhythm rate of 61. Left axis deviation. Code Status & VTE Plan VTE Prophylaxis Plan VTE Prophylaxis will be ordered: Yes
[2023-06-19] MEDS ORDERED: DEXTROSE 50% 50 ML SYRINGE IV PRN (09:33)
[2023-06-19] MEDS ORDERED: GLUCOSE 10 TAB/TUBE PO PRN (09:33)
[2023-06-19] MEDS ORDERED: GLUCOSE 40% GEL 15 GM TUBE PO PRN (09:33)
[2023-06-19] MEDS ORDERED: SODIUM CHLORIDE 0.9% 1,000 ML IV SCH (09:33)
[2023-06-19] MEDS ORDERED: CARBOHYDRATES FOR HYPOGLYCEMIA PO PRN (09:33)
[2023-06-19] MEDS ORDERED: GLUCAGON FOR INJ 1 MG VIAL SQ PRN (09:33)
[2023-06-19] MEDS ORDERED: NITROGLYCERIN SL 0.4 MG/TAB TAB SL PRN (09:33)
[2023-06-19] MEDS ORDERED: POLYETHYLENE (MIRALAX) 17 GM PACK PO PRN (09:33)
--- NOTE | 2023-06-19 09:54 | Hospitalist Progress Note ---
Date of Service June 19, 2023 Assessment & Plan (1) Withdrawal syndrome: Plan: Symptoms are consistent with a trazodone withdrawal syndrome including dizziness lightheadedness vertigo fatigue. Additional symptoms including anxiety agitation confusion insomnia and irritability may be expected. We will reinstate trazodone at 200 mg starting this evening and suggested prolonged taper over 4 weeks time if he wants to come down off of this. Recommend against further use of temazepam which by itself may have symptoms including drowsiness, dizziness, lethargy hangover affect and vertigo. Both of these may be contributing to current symptoms. Avoid temazepam, reinstate trazodone with taper if desired. PT OT evaluation. Brain MRI negative ruling out stroke. (2) Frequent falls: Plan: Frequent falls are a result of the above and will hopefully improve with medication changes as planned. PT OT to assess. (3) Insomnia: Plan: [facility] De Dios in the office to discuss treatment for insomnia including behavior changes and identification of other contributing factors. (4) DMII (diabetes mellitus, type 2): Plan: Chronic stable and well-controlled. Continue insulin as ordered. (5) HTN (hypertension): Plan: Chronic, at goal. Continue lisinopril per home regimen. Lovenox Full Code Dispo-cont telemetry I spent a total [id number] coordinating, documenting, and providing care for this patient excluding time spent in the performance of separately billed services Catie Mendez DO [facility] Admission and Anticipated Discharge Date Admission Date: June 19, 2023 Subjective 82-year-old diabetic man with well-controlled diabetes presents with frequent falls and imbalance issues for the last 2 weeks. He was recently admitted to [facility] with work-up unremarkable including a CT head and carotid Doppler and an echocardiogram. He underwent an MRI of the brain this morning which was normal. He has no other strokelike symptoms present and is mentating at baseline. He ambulates with a walker at baseline. He mentions that 2 weeks ago he changed his trazodone to a new sleep aid for worsening insomnia. He was initially on trazodone 200 mg every night chronically with last fill date of 06/03. Primary care doctor then placed him on temazepam 15 mg p.o. at night but this caused him to be very dizzy and off-balance. He filled the temazepam on 06/10, approximately 9 days ago. Today at rest he denies any dizziness and reports feeling worse when he stands up. No other significant medication changes reported. Physical Exam Physical Exam: CONSTITUTIONAL: WNWD, vitals as above, generally well-appearing, NAD EYES: pupils are round and equal bilaterally, normal conjunctivae, no scleral icterus ENT: external ear and nose normal, MMM NECK: trachea midline RESPIRATORY: clear to auscultation bilaterally, no crackles, rales or wheezes, normal respiratory effort CARDIOVASCULAR: regular rate and rhythm, S1 and 2 heard without murmurs, gallops or rubs, no JVD, no peripheral edema CHEST: inspection of chest was normal GASTROINTESTINAL: normal bowel sounds, soft, nontender, ND, no guarding. MUSCULOSKELETAL: strength 5/5 throughout, head is normocephalic and atraumatic SKIN: warm and dry NEUROLOGIC: CN 2-12 grossly intact, no sensory deficit, normal cognition, normal speech, no tremor PSYCHIATRIC: alert cooperative and oriented to person, place and time. Euthymic mood, makes good eye contact, language grossly intact, recent and remote memory grossly intact. Results & Data Results & Data Vital Signs (Past 12 Hours) Vital Signs Temp Pulse Pulse Resp BP BP Pulse Ox 06/19/23 09:18 56 L 06/19/23 09:00 58 L 20 06/19/23 08:30 54 L 18 06/19/23 08:00 60 22 06/19/23 08:00 117/72 06/19/23 07:30 55 L 16 06/19/23 07:00 24 06/19/23 06:40 53 L 22 98 06/19/23 06:30 63 28 H 99 06/19/23 06:20 57 L 20 95 06/19/23 06:10 18 06/19/23 06:04 61 16 93 06/19/23 06:04 131/74 06/19/23 06:00 67 17 91 06/19/23 05:50 60 17 06/19/23 05:40 55 L 20 92 06/19/23 05:30 55 L 17 94 06/19/23 05:20 57 L 21 94 06/19/23 05:10 58 L 22 95 06/19/23 05:00 23 94 06/19/23 04:50 54 L 20 93 06/19/23 04:40 56 L 20 94 06/19/23 04:30 59 L 16 96 06/19/23 04:20 52 L 19 95 06/19/23 04:10 53 L 17 96 06/19/23 04:00 55 L 22 94 06/19/23 03:50 54 L 15 95 06/19/23 03:40 51 L 15 96 06/19/23 03:30 56 L 24 96 06/19/23 03:20 53 L 18 95 06/19/23 03:10 54 L 23 95 06/19/23 03:00 57 L 16 95 06/19/23 02:50 57 L 21 96 06/19/23 02:43 56 L 24 95 06/19/23 02:43 114/72 06/19/23 02:40 57 L 14 96 06/19/23 02:30 53 L 19 95 06/19/23 02:20 54 L 16 96 06/19/23 02:10 54 L 19 96 06/19/23 02:00 54 L 18 94 06/19/23 01:50 53 L 22 95 06/19/23 01:40 64 21 94 06/19/23 01:30 55 L 24 96 06/19/23 01:20 54 L 19 93 06/19/23 01:10 60 16 97 06/19/23 01:00 56 L 21 94 06/19/23 00:50 55 L 21 92 06/19/23 00:40 58 L 22 93 06/19/23 00:33 131 H 19 06/19/23 00:20 56 L 22 95 06/19/23 00:10 63 22 93 06/19/23 00:00 59 L 24 100 06/18/23 23:50 60 24 94 06/18/23 23:40 61 26 H 92 06/18/23 23:31 58 L 21 91 06/19/23 06:04 57 L 06/19/23 06:00 59 L 16 91 06/19/23 04:00 58 L 16 114/72 98 06/19/23 02:30 57 L 20 114/72 97 06/19/23 00:53 59 L 18 136/83 94 06/18/23 23:31 58 L 06/18/23 22:51 36.5 C 69 16 123/78 95 O2 Del Method 06/19/23 09:18 10/14/23 09:00 06/19/23 08:30 06/19/23 08:00 06/19/23 08:00 06/19/23 07:30 06/19/23 07:00 06/19/23 06:40 06/19/23 06:30 06/19/23 06:20 06/19/23 06:10 06/19/23 06:04 06/19/23 06:04 06/19/23 06:00 06/19/23 05:50 06/19/23 05:40 06/19/23 05:30 06/19/23 05:20 06/19/23 05:10 06/19/23 05:00 06/19/23 04:50 06/19/23 04:40 06/19/23 04:30 06/19/23 04:20 06/19/23 04:10 06/19/23 04:00 06/19/23 03:50 06/19/23 03:40 06/19/23 03:30 06/19/23 03:20 06/19/23 03:10 06/19/23 03:00 06/19/23 02:50 06/19/23 02:43 06/19/23 02:43 06/19/23 02:40 06/19/23 02:30 06/19/23 02:20 06/19/23 02:10 06/19/23 02:00 06/19/23 01:50 06/19/23 01:40 06/19/23 01:30 06/19/23 01:20 06/19/23 01:10 06/19/23 01:00 06/19/23 00:50 06/19/23 00:40 06/19/23 00:33 06/19/23 00:20 06/19/23 00:10 06/19/23 00:00 06/18/23 23:50 06/18/23 23:40 06/18/23 23:31 06/19/23 06:04 06/19/23 06:00 Room Air 06/19/23 04:00 Room Air 06/19/23 02:30 Room Air 06/19/23 00:53 Room Air 06/18/23 23:31 06/18/23 22:51 Room Air Laboratory Results Short CBC 06/18/23 Range/Units 23:30 WBC 8.44 (4.8-10.8) K/ul Hgb 14.2 (14.0-18.0) g/dl Hct 39.9 L (42.0-52.0) % Plt Count 157 (130-400) K/uL BMP 06/18/23 23:30 Sodium 133 L Potassium 3.8 Chloride 103 Carbon Dioxide 21 BUN 17 Creatinine 0.88 Glucose 187 H Calcium 9.1 Liver Function 06/18/23 Range/Units 23:30 Total Bilirubin 0.5 (0.2-1.0) mg/dl AST 35 (13-39) U/L ALT 34 (7-52) U/L Alkaline Phosphatase 89 (34-104) U/L Albumin 3.6 (3.4-5.0) gm/dl Urine 06/19/23 Range/Units 03:50 Urine Color Yellow Urine Appearance Clear (Clear) Urine pH 5.0 (4.5-7.5) Ur Specific [place] 1.010 (1.000-1.030) Urine Protein Negative (Negative) Urine Glucose (UA) Negative (Negative) Diagnostic Findings Head CT 06/19/23 00:03 Exam(s): CT HEAD Without Contrast EXAM: CT Head Without Intravenous Contrast CLINICAL HISTORY: altered mental status; h/o falls. TECHNIQUE: Axial computed tomography images of the head/brain without intravenous contrast. CTDI is 36.62 mGy and DLP is 625.8 mGy-cm. Automated exposure control was utilized for the study. A dose lowering technique was utilized adhering to the principles of ALARA. COMPARISON: No relevant prior studies available. FINDINGS: Brain: Underlying parenchymal involutional changes are noted with prominence of the cerebral sulci and sylvian fissures. There is predominantly periventricular deep white matter hypodense changes noted bilaterally. No intracranial hemorrhage. No significant mass effect. No evidence for cortical infarct. Ventricles: Unremarkable. No ventriculomegaly. Bones/joints: Unremarkable. No acute fracture. Soft tissues: No significant overlying acute traumatic soft tissue abnormality identified. Sinuses: Unremarkable as visualized. No acute sinusitis. Mastoid air cells: Unremarkable as visualized. No mastoid effusion. IMPRESSION: No acute intracranial process identified. Electronically signed by: Anthony Bedolla MD 06/19/23 02:54 AM Medications Administered Current Inpatient Medications Acetaminophen (Acetaminophen 325 Mg Tab) 650 mg PO Q4H PRN PRN Reason: Pain or Fever Stop: 07/19/23 09:32 Aspirin (Aspirin 81 Mg Ectab) 81 mg PO DAILY [facility] Stop: 07/19/23 09:32 Dextrose (Dextrose 50% 50 Ml Syringe) 25 - 50 ml IV UD PRN; Protocol PRN Reason: Hypoglycemia Protocol Stop: 07/19/23 09:32 Glucagon (Glucagon For Inj 1 Mg Vial) 1 mg SQ UD PRN; Protocol PRN Reason: Hypoglycemia Protocol Stop: 07/19/23 09:32 Glucose (Glucose 10 Tab/Tube) 4 - 8 tab PO UD PRN; Protocol PRN Reason: Hypoglycemia Treatment Stop: 07/19/23 09:32 Glucose (Glucose 40% Gel 15 Gm Tube) 15 - 30 gm PO UD PRN; Protocol PRN Reason: Hypoglycemia Protocol Stop: 07/19/23 09:32 Sodium Chloride (Nss) 1,000 mls @ 75 mls/hr IV .[id number] [facility] Stop: 06/19/23 22:52 Insulin Aspart (Insulin Aspart Per Unit Charge) 0 units SC ACHS [facility] Stop: 07/19/23 09:32 Lisinopril (Lisinopril 5 Mg Tab) 5 mg PO DAILY [facility] Stop: 07/19/23 09:32 Metoprolol Tartrate (Metoprolol Tartrate 25 Mg Tab) 25 mg PO BID [facility] Stop: 07/19/23 09:32 Miscellaneous (Carbohydrates For Hypoglycemia ) 15 - 30 gm PO UD PRN PRN Reason: Hypoglycemia Protocol Stop: 07/19/23 09:32 Miscellaneous Information (Patient's Allergy Info Needs Entered) 1 each N/A Q30M [facility] Stop: 07/19/23 09:44 Nitroglycerin (Nitroglycerin Sl 0.4 Mg/Tab Tab) 0.4 mg SL Q5M PRN PRN Reason: Chest Pain Stop: 07/19/23 09:32 Non-Formulary Medication (Insulin Detemir U-100 [Levemir U-100 Insulin]) 29 units SQ HS [facility] Stop: 07/19/23 20:59 Polyethylene Glycol (Polyethylene (Miralax) 17 Gm Pack) 17 gm PO DAILY PRN PRN Reason: Constipation Stop: 07/19/23 09:32 Pravastatin Sodium (Pravastatin Sod 40 Mg Tab) 40 mg PO DAILY [facility] Stop: 07/19/23 09:32
[2023-06-19] MEDS ORDERED: GADOBUTROL 65ML VIAL IV ONE (10:45)
--- NOTE | 2023-06-19 11:18 | Magnetic Resonance Report ---
MR brain wo/w con CLINICAL HISTORY: imbalance, stroke like symptoms TECHNIQUE: Multiplanar and multisequence MR images of the brain were obtained prior to and following administration of gadolinium contrast. Comparison: None available at the time of this dictation. FINDINGS: No abnormal restricted diffusion is identified. The white matter is unremarkable. The ventricular sys tem is normal in appearance. No mass or abnormal enhancement is seen. There is no mass effect or midl ine shift. There is no evidence of acute intraparenchymal hemorrhage. No extra axial fluid collection s are seen. The corpus callosum, pituitary gland, and cerebellar tonsils appear grossly unremarkable. Flow voids of the major intracranial arterial vessels are identified. The imaged portions of the para nasal sinuses, mastoid air cells, and orbits are unremarkable. IMPRESSION: No acute abnormalities. ACT 112: Negative or not required by law. Electronically signed by: Cas Demarco M.D. 06/19/2023 11:15 AM
[2023-06-19] MEDS: Patient's ALLERGY Info needs ENTERED SCH ×3 (11:39→13:29)
[2023-06-19] MEDS: INSULIN ASPART PER UNIT CHARGE SC SCH ×4 (11:41→20:26)
[2023-06-19] MEDS: lisinopril 5 MG TAB PO SCH (13:27)
[2023-06-19] MEDS: PRAVASTATIN SOD 40 MG TAB PO SCH (13:27)
[2023-06-19] MEDS: METOPROLOL TARTRATE 25 MG TAB PO SCH ×2 (13:27→21:55)
[2023-06-19] MEDS: ASPIRIN 81 MG ECTAB PO SCH (13:27)
[2023-06-19] MEDS: LANTUS PER UNIT CHARGE SQ SCH (21:54)
[2023-06-19] MEDS: traZODone HCL 100 MG TAB PO SCH (21:55)
[2023-06-20 06:03] LABS: Basophils # (auto) 0.03 K/uL (0.00-0.20); Basophils % (auto) 0.5 %; Eosinophils # (auto) 0.08 K/uL (0.00-0.50); Eosinophils % (auto) 1.2 %; Hematocrit (blood only) 38.3 % (42.0-52.0); Hemoglobin 13.5 g/dl (14.0-18.0); Immature Granulocytes # (auto) 0.02 K/uL (0.01-0.20); Immature Granulocytes % (auto) 0.3 %; Lymphocytes # (auto) 1.61 K/uL (1.20-3.40); Lymphocytes % (auto) 24.4 %; Mean Corpuscular Hemoglobin 32.5 pg (25.0-34.0); Mean Corpuscular Hgb Conc 35.2 g/dL (32.0-36.0); Mean Corpuscular Volume 92.1 fL (80.0-100.0); Mean Platelet Volume 10.7 fL (9.4-12.4); Monocytes # (auto) 0.83 K/uL (0.11-0.59); Monocytes % (auto) 12.6 %; Neutrophils # (auto) 4.02 K/uL (1.40-6.50); Platelet Count 135 K/uL (130-400); Red Blood Count 4.16 M/uL (4.70-6.10); White Blood Count 6.59 K/ul (4.8-10.8)
[2023-06-20 06:11] LABS: BUN Creatinine Ratio 20.5 (10-20); Calcium 8.8 mg/dl (8.6-10.3); Creatinine Clr Calc Pharmacy 78.1 ml/min; Est GFR (African American) 101.5 ml/min; Est GFR (Non-African American) 87.6 ml/min; Magnesium 2.1 mg/dl (1.7-2.4); Potassium 3.9 mmol/L (3.5-5.1)
--- NOTE | 2023-06-20 07:29 | Electrocardiogram Report ---
Test Reason : Blood Pressure : / mmHG Vent. Rate : 061 BPM Atrial Rate : 061 BPM P-R Int : 144 ms QRS Dur : 108 ms QT Int : 428 ms P-R-T Axes : 035 -33 017 degrees QTc Int : 430 ms Normal sinus rhythm Left axis deviation RSR' or QR pattern in V1 suggests right ventricular conduction delay T wave abnormality, consider anterior ischemia Abnormal ECG No previous ECGs available Confirmed by Rich Vargas ([id number]) on 06/20/2023 7:29:24 AM Referred By: REFERRED SELF Confirmed By:Rich Vargas
[2023-06-20] MEDS: METOPROLOL TARTRATE 25 MG TAB PO SCH ×2 (08:34→21:15)
[2023-06-20] MEDS: lisinopril 5 MG TAB PO SCH (08:34)
[2023-06-20] MEDS: ASPIRIN 81 MG ECTAB PO SCH (08:35)
[2023-06-20] MEDS: PRAVASTATIN SOD 40 MG TAB PO SCH (08:35)
[2023-06-20] MEDS: ENOXAPARIN INJ 40 MG/0.4 ML SYR SQ SCH (08:35)
[2023-06-20] MEDS: INSULIN ASPART PER UNIT CHARGE SC SCH ×4 (09:32→21:14)
[2023-06-20] MEDS: ACETAMINOPHEN 325 MG TAB PO PRN ×2 (11:52→16:27)
--- NOTE | 2023-06-20 15:51 | Hospitalist Progress Note ---
Date of Service June 20, 2023 Assessment & Plan (1) Withdrawal syndrome: Plan: Symptoms are consistent with a trazodone withdrawal syndrome including dizziness lightheadedness vertigo fatigue. Additional symptoms including anxiety agitation confusion insomnia and irritability may be expected. We will reinstate trazodone at 200 mg starting this evening and suggested prolonged taper over 4 weeks time if he wants to come down off of this. Recommend against further use of temazepam which by itself may have symptoms including drowsiness, dizziness, lethargy hangover affect and vertigo. PT OT evaluation-has been doing great with the physical therapy Denies any more withdrawal symptoms and tolerating trazodone nicely Like to be discharged tomorrow (2) Frequent falls: Plan: Frequent falls are a result of the above and will hopefully improve with medication changes as planned. PT OT to assess.-Evaluation is done (3) Insomnia: Plan: Would followup wtih Dr. De Dios in the office to discuss treatment for insomnia including behavior changes and identification of other contributing factors. Likely secondary to withdrawal symptoms from trazodone Started back when he is trazodone and has been feeling much better (4) DMII (diabetes mellitus, type 2): Plan: Chronic stable and well-controlled. Continue insulin as ordered. (5) HTN (hypertension): Plan: Chronic, at goal. Continue lisinopril per home regimen. Lovenox Full Code Dispo-cont telemetry I spent a total [id number] coordinating, documenting, and providing care for this patient excluding time spent in the performance of separately billed services [facility] and Anticipated Discharge Date Admission Date: June 19, 2023 Subjective 06/20/2023 The patient was seen and examined in medical telemetry unit He has had his breakfast and had physical therapy this morning During my examination he was sleeping without any acute symptoms on asking question Review of Systems Review of Systems: All systems reviewed and are unremarkable except as noted below Physical Exam Physical Exam: Lying in bed without any apparent distress Constitutional: well developed, well nourished and + obese Eyes: PERRL, conjunctivae normal, anicteric sclerae ENMT: external ear and nose normal, oropharynx normal Neck: trachea midline, no thyromegaly Respiratory: no respiratory distress Auscultation: lungs clear to auscultation bilaterally Cardiovascular: Rate/Rhythm: regular rate and regular rhythm; not tachycardic Heart Sounds: normal S1 and normal S2; no murmur Extremities: no edema Gastrointestinal (Abdomen): Inspection/Auscultation: normal bowel sounds; abdomen not distended Percussion/Palpation: abdomen soft; abdomen nontender Musculoskeletal: No acute arthritis involving any of the joint Neurologic: normal touch/pain/proprioception and moves all extremities; no focal motor deficits Psychiatric: A+Ox3, euthymic affect Lymphatic: no cervical or axillary lymphadenopathy Results & Data Results & Data Vital Signs (Past 12 Hours) Vital Signs Temp Pulse Pulse Resp BP Pulse Ox O2 Del Method 06/20/23 15:22 36.5 C 54 L 18 109/69 93 Room Air 06/20/23 14:04 50 L 06/20/23 11:13 36.4 C L 53 L 16 95/59 L 94 Room Air 06/20/23 07:45 36.6 C 63 16 115/72 94 Room Air 06/20/23 07:00 56 L 06/20/23 04:14 36.4 C L 59 L 20 117/69 96 Room Air Laboratory Results Short CBC 06/20/23 Range/Units 05:29 WBC 6.59 (4.8-10.8) K/ul Hgb 13.5 L (14.0-18.0) g/dl Hct 38.3 L (42.0-52.0) % Plt Count 135 (130-400) K/uL BMP 06/20/23 05:29 Sodium 138 Potassium 3.9 Chloride 108 H Carbon Dioxide 25 BUN 15 Creatinine 0.73 Glucose 75 Calcium 8.8 Medications Administered Current Inpatient Medications Acetaminophen (Acetaminophen 325 Mg Tab) 650 mg PO Q4H PRN PRN Reason: Pain or Fever Stop: 07/19/23 09:32 Last Admin: 06/20/23 11:52 Dose: 650 mg Aspirin (Aspirin 81 Mg Ectab) 81 mg PO DAILY PRINCE Stop: 07/19/23 09:32 Last Admin: 06/20/23 08:35 Dose: 81 mg Dextrose (Dextrose 50% 50 Ml Syringe) 25 - 50 ml IV UD PRN; Protocol PRN Reason: Hypoglycemia Protocol Stop: 07/19/23 09:32 Enoxaparin Sodium (Enoxaparin Inj 40 Mg/0.4 Ml Syr) 40 mg SQ QAM PRINCE Stop: 07/20/23 08:59 Last Admin: 06/20/23 08:35 Dose: 40 mg Glucagon (Glucagon For Inj 1 Mg Vial) 1 mg SQ UD PRN; Protocol PRN Reason: Hypoglycemia Protocol Stop: 07/19/23 09:32 Glucose (Glucose 10 Tab/Tube) 4 - 8 tab PO UD PRN; Protocol PRN Reason: Hypoglycemia Treatment Stop: 07/19/23 09:32 Glucose (Glucose 40% Gel 15 Gm Tube) 15 - 30 gm PO UD PRN; Protocol PRN Reason: Hypoglycemia Protocol Stop: 07/19/23 09:32 Insulin Aspart (Insulin Aspart Per Unit Charge) 0 units SC ACHS PRINCE Stop: 07/19/23 09:32 Last Admin: 06/20/23 12:59 Dose: 2 units Insulin Glargine (Lantus Per Unit Charge) 29 units SQ HS PRINCE Stop: 07/19/23 20:59 Last Admin: 06/19/23 21:54 Dose: 29 units Lisinopril (Lisinopril 5 Mg Tab) 5 mg PO DAILY PRINCE Stop: 07/19/23 09:32 Last Admin: 06/20/23 08:34 Dose: 5 mg Metoprolol Tartrate (Metoprolol Tartrate 25 Mg Tab) 25 mg PO BID PRINCE Stop: 07/19/23 09:32 Last Admin: 06/20/23 08:34 Dose: 25 mg Miscellaneous (Carbohydrates For Hypoglycemia ) 15 - 30 gm PO UD PRN PRN Reason: Hypoglycemia Protocol Stop: 07/19/23 09:32 Nitroglycerin (Nitroglycerin Sl 0.4 Mg/Tab Tab) 0.4 mg SL Q5M PRN PRN Reason: Chest Pain Stop: 07/19/23 09:32 Polyethylene Glycol (Polyethylene (Miralax) 17 Gm Pack) 17 gm PO DAILY PRN PRN Reason: Constipation Stop: 07/19/23 09:32 Last Admin: 06/20/23 11:57 Dose: 17 gm Pravastatin Sodium (Pravastatin Sod 40 Mg Tab) 40 mg PO DAILY [facility] Stop: 07/19/23 09:32 Last Admin: 06/20/23 08:35 Dose: 40 mg Trazodone HCl (Trazodone Hcl 100 Mg Tab) 200 mg PO HS PRINCE Stop: 07/19/23 20:59 Last Admin: 06/19/23 21:55 Dose: 200 mg
[2023-06-20] MEDS: LANTUS PER UNIT CHARGE SQ SCH (21:14)
[2023-06-20] MEDS: traZODone HCL 100 MG TAB PO SCH (21:16)
[2023-06-21 07:20] LABS: Estimated Average Glucose 126 mg/dl
[2023-06-21] MEDS: INSULIN ASPART PER UNIT CHARGE SC SCH ×3 (08:32→17:56)
[2023-06-21] MEDS: METOPROLOL TARTRATE 25 MG TAB PO SCH (08:33)
[2023-06-21] MEDS: ASPIRIN 81 MG ECTAB PO SCH (08:33)
[2023-06-21] MEDS: lisinopril 5 MG TAB PO SCH (08:34)
[2023-06-21] MEDS: PRAVASTATIN SOD 40 MG TAB PO SCH (08:34)
[2023-06-21] MEDS: ENOXAPARIN INJ 40 MG/0.4 ML SYR SQ SCH (09:05)
--- NOTE | 2023-06-21 12:16 | Hospitalist Progress Note ---
Date of Service June 21, 2023 Assessment & Plan (1) Withdrawal syndrome: Plan: Symptoms are consistent with a trazodone withdrawal syndrome including dizziness lightheadedness vertigo fatigue. Additional symptoms including anxiety agitation confusion insomnia and irritability may be expected. We will reinstate trazodone at 200 mg starting this evening and suggested prolonged taper over 4 weeks time if he wants to come down off of this. Recommend against further use of temazepam which by itself may have symptoms including drowsiness, dizziness, lethargy hangover affect and vertigo. PT OT evaluation-has been doing great with the physical therapy Denies any more withdrawal symptoms and tolerating trazodone nicely He has been much better today and has had physical therapy Denies any symptoms today and wants to go home (2) Frequent falls: Plan: Frequent falls are a result of the above and will hopefully improve with medication changes as planned. PT OT to assess.-Evaluation is done Did very well with the physical therapy and he will be discharged home this afternoon (3) Insomnia: Plan: Would followup wt Dr. De Dios in the office to discuss treatment for insomnia including behavior changes and identification of other contributing factors. Likely secondary to withdrawal symptoms from trazodone Started back when he is trazodone and has been feeling much better (4) DMII (diabetes mellitus, type 2): Plan: Chronic stable and well-controlled. Continue insulin as ordered. (5) HTN (hypertension): Plan: Chronic, at goal. Continue lisinopril per home regimen. Lovenox Full Code Dispo-cont telemetry I spent a total [id number] coordinating, documenting, and providing care for this patient excluding time spent in the performance of separately billed services Citlali Calvillo MD [facility] Hospitalist Tried to inform the niece but unsuccessful He will be discharged home this afternoon Admission and Anticipated Discharge Date Admission Date: June 19, 2023 Subjective 06/20/2023 The patient was seen and examined in medical telemetry unit He has had his breakfast and had physical therapy this morning During my examination he was sleeping without any acute symptoms on asking question 06/21/2023 The patient was seen and examined in medical telemetry unit He has been feeling much better and denies any symptoms He has had physical therapy and did very well with that He wants to go home this afternoon Review of Systems Review of Systems: All systems reviewed and are unremarkable except as noted below Physical Exam Physical Exam: Lying in bed without any apparent distress Constitutional: well developed, well nourished and + obese Eyes: PERRL, conjunctivae normal, anicteric sclerae ENMT: external ear and nose normal, oropharynx normal Neck: trachea midline, no thyromegaly Respiratory: no respiratory distress Auscultation: lungs clear to ausc ultation bilaterally Cardiovascular: Rate/Rhythm: regular rate and regular rhythm; not tachycardic Heart Sounds: normal S1 and normal S2; no murmur Extremities: no edema Gastrointestinal (Abdomen): Inspection/Auscultation: normal bowel sounds; abdomen not distended Percussion/Palpation: abdomen soft; abdomen nontender Musculoskeletal: No acute arthritis involving any of the joint Neurologic: normal touch/pain/proprioception and moves all extremities; no focal motor deficits Psychiatric: A+Ox3, euthymic affect Lymphatic: no cervical or axillary lymphadenopathy Results & Data Results & Data Vital Signs (Past 12 Hours) Vital Signs Temp Pulse Pulse Resp BP Pulse Ox O2 Del Method 06/21/23 11:41 36.5 C 59 L 18 108/69 95 Room Air 06/21/23 08:08 36.2 C L 63 18 122/75 94 Room Air 06/21/23 07:35 Room Air 06/21/23 07:22 56 L 06/21/23 03:00 36.6 C 63 20 108/71 95 Room Air Medications Administered Current Inpatient Medications Acetaminophen (Acetaminophen 325 Mg Tab) 650 mg PO Q4H PRN PRN Reason: Pain or Fever Stop: 07/19/23 09:32 Last Admin: 06/20/23 16:27 Dose: 650 mg Aspirin (Aspirin 81 Mg Ectab) 81 mg PO DAILY PRINCE Stop: 07/19/23 09:32 Last Admin: 06/21/23 08:33 Dose: 81 mg Dextrose (Dextrose 50% 50 Ml Syringe) 25 - 50 ml IV UD PRN; Protocol PRN Reason: Hypoglycemia Protocol Stop: 07/19/23 09:32 Enoxaparin Sodium (Enoxaparin Inj 40 Mg/0.4 Ml Syr) 40 mg SQ QAM PRINCE Stop: 07/20/23 08:59 Last Admin: 06/21/23 09:05 Dose: 40 mg Glucagon (Glucagon For Inj 1 Mg Vial) 1 mg SQ UD PRN; Protocol PRN Reason: Hypoglycemia Protocol Stop: 07/19/23 09:32 Glucose (Glucose 10 Tab/Tube) 4 - 8 tab PO UD PRN; Protocol PRN Reason: Hypoglycemia Treatment Stop: 07/19/23 09:32 Glucose (Glucose 40% Gel 15 Gm Tube) 15 - 30 gm PO UD PRN; Protocol PRN Reason: Hypoglycemia Protocol Stop: 07/19/23 09:32 Insulin Aspart (Insulin Aspart Per Unit Charge) 0 units SC ACHS PRINCE Stop: 07/19/23 09:32 Last Admin: 06/21/23 08:32 Dose: Not Given Insulin Glargine (Lantus Per Unit Charge) 15 units SQ HS [facility] Stop: 07/21/23 20:59 Lisinopril (Lisinopril 5 Mg Tab) 5 mg PO DAILY PRINCE Stop: 07/19/23 09:32 Last Admin: 06/21/23 08:34 Dose: 5 mg Metoprolol Tartrate (Metoprolol Tartrate 25 Mg Tab) 25 mg PO BID PRINCE Stop: 07/19/23 09:32 Last Admin: 06/21/23 08:33 Dose: 25 mg Miscellaneous (Carbohydrates For Hypoglycemia ) 15 - 30 gm PO UD PRN PRN Reason: Hypoglycemia Protocol Stop: 07/19/23 09:32 Last Admin: 06/21/23 08:56 Dose: 15 gm Nitroglycerin (Nitroglycerin Sl 0.4 Mg/Tab Tab) 0.4 mg SL Q5M PRN PRN Reason: Chest Pain Stop: 07/19/23 09:32 Polyethylene Glycol (Polyethylene (Miralax) 17 Gm Pack) 17 gm PO DAILY PRN PRN Reason: Constipation Stop: 07/19/23 09:32 Last Admin: 06/20/23 11:57 Dose: 17 gm Pravastatin Sodium (Pravastatin Sod 40 Mg Tab) 40 mg PO DAILY PRINCE Stop: 07/19/23 09:32 Last Admin: 06/21/23 08:34 Dose: 40 mg Trazodone HCl (Trazodone Hcl 100 Mg Tab) 200 mg PO HS PRINCE Stop: 07/19/23 20:59 Last Admin: 06/20/23 21:16 Dose: 200 mg
[2023-06-21] MEDS ORDERED: LANTUS PER UNIT CHARGE SQ SCH (21:00)
--- NOTE | 2023-06-22 16:57 | Discharge Summary ---
Date of Service June 21, 2023 Admission HPI Per Admitting Provider 82-year-old male with past medical significant for type 2 diabetes, lung cancer, thoracic aortic aneurysm, hypertension, tobacco use, ambulate dysfunction, lives alone at home ambulates with a walker sister and nieces lives close by is brought in by niece because of frequent falls and imbalance. Patient was admitted to [facility] on June 17 and discharged on June for similar problem. Looks like he fell 5 times in the last past 1 week seem while standing gets lightheaded and becomes off balance and falls. Hit his head but no loss of consciousness. At [facility] had CT head, carotid Doppler and echo which were unremarkable. Seen by cardiology and neurology and plan for Zio patch as outpatient. Got discharged but his symptoms did not improve. Says is not ambulating much because of the imbalance and falls. Initially had some difficulty speaking. Currently patient speech seems okay. No headache. No runny nose or sore throat. No difficulty swallowing. Appetite is good. No fevers. No chest pain or shortness of breath. No nausea or vomiting. No abdominal pain. Normal bowel and bladder movements. Past medical history. As mentioned above Past surgical history. No surgical history on file Social history. Smokes pipe. No alcohol. No drug use. Family history. Sister had AAA. Brother had lower extremity aneurysm. Admission Exam Per Admitting Provider Physical Exam: General- Not in distress Head- atraumatic Eyes- PERRL.EMOI ENT- oropharynx clear Neck- supple, no JVD. Lungs- clear to auscultation no wheezing or crackles. Heart- regular rhythm; no murmur, no gallop. Abdomen- normal bowel sounds, soft, nontender, no distension Extremities- no pretibial edema, no erythema seen. Neuro- alert, oriented x 3; PERRL, EOMI; no facial palsy; no dysarthria; motor 5/5 bilaterally; no pronator drift, co-ordination of movements normal. sensations intact. Skin- warm & dry Principal Diagnosis Withdrawal syndrome from trazodone Discharge Exam Lying in bed without any apparent distress Constitutional well developed, well nourished and + obese Eyes PERRL, conjunctivae normal, anicteric sclerae ENMT external ear and nose normal, oropharynx normal Neck trachea midline, no thyromegaly Respiratory no respiratory distress Auscultation: lungs clear to auscultation bilaterally Cardiovascular Rate/Rhythm: regular rate and regular rhythm; not tachycardic Heart Sounds: normal S1 and normal S2; no murmur Extremities: no edema Gastrointestinal (Abdomen) Inspection/Auscultation: normal bowel sounds; abdomen not distended Percussion/Palpation: abdomen soft; abdomen nontender Neurologic normal touch/pain/proprioception and moves all extremities; no focal motor deficits Psychiatric A+Ox3, euthymic affect Lymphatic no cervical or axillary lymphadenopathy Discharge Data Allergies Allergy/AdvReac Type Severity Reaction Status Date / Time No Known Allergies Allergy Unverified 06/19/23 11:39 Consultations 06/19/23 04:12 ED Decision to Admit Stat Ordered Studies 06/19/23 00:03 CT head/brain wo con Stat 06/19/23 09:33 MRI Brain [MR brain wo/w con] Urgent Hospital Course (1) Withdrawal syndrome: Symptoms are consistent with a trazodone withdrawal syndrome including dizziness lightheadedness vertigo fatigue. Additional symptoms including anxiety agitation confusion insomnia and irritability may be expected. We will reinstate trazodone at 200 mg starting this evening and suggested prolonged taper over 4 weeks time if he wants to come down off of this. Recommend against further use of temazepam which by itself may have symptoms including drowsiness, dizziness, lethargy hangover affect and vertigo. PT OT evaluation-has been doing great with the physical therapy Denies any more withdrawal symptoms and tolerating trazodone nicely He has been much better today and has had physical therapy Denies any symptoms today and wants to go home (2) Frequent falls: Frequent falls are a result of the above and will hopefully improve with medication changes as planned. PT OT to assess.-Evaluation is done Did very well with the physical therapy and he will be discharged home this afternoon (3) Insomnia: Would followup [facility] Dr. De Dios in the office to discuss treatment for insomnia including behavior changes and identification of other contributing factors. Likely secondary to withdrawal symptoms from trazodone Started back when he is trazodone and has been feeling much better (4) DMII (diabetes mellitus, type 2): Chronic stable and well-controlled. Continue insulin as ordered. (5) HTN (hypertension): Chronic, at goal. Continue lisinopril per home regimen. Lovenox Full Code Dispo-cont telemetry I spent a total [id number] coordinating, documenting, and providing care for this patient excluding time spent in the performance of separately billed services Citlali Calvillo MD [facility] Hospitalist Tried to inform the niece but unsuccessful He will be discharged home this afternoon Total Time Total Time Spent Total Time Spent (In Minutes): 45 minutes Discharge Plan Discharge Items Patient Disposition: Home - Self-Care Reason For Visit: STROKE-LIKE SYMPTOMS Discharge Diagnosis: Withdrawal syndrome from trazodone Condition on Discharge: Fair Activity: Resume your previous activity Non-emergency contact: Primary Care Provider Call non-emergency contact if: you have any medication questions and your symptoms worsen Follow-up/Referrals: Juanito De Dios, [Primary Care Provider] - 06/24/23 11:15 am Diet: Regular Addtl Attending Provider Instructions: Please take precautions to avoid fall Take your medications as advised Do not stop trazodone all at once that has to be gradually tapered by your primary care physician Please keep appointment with your healthcare provider Your blood sugar is noted to be low in the hospital-we advised to decrease insulin to 20 units instead of 29 units for the next few days and get adjusted from your PCP Pending Studies at Discharge: No Stand-Alone Forms: My [facility] [place] [employer] Smoking Cessation Medications and DC Order Prescriptions: New trazodone 100 mg Tablet 200 mg PO HS Qty: 30 0RF Continued pravastatin 40 mg tablet 40 mg PO DAILY lisinopril 5 mg tablet 5 mg PO DAILY metoprolol tartrate 25 mg tablet 25 mg PO BID Levemir U-100 Insulin 100 unit/mL solution 29 unit SUBCUT HS aspirin 81 mg Tablet,Delayed Release (Dr/Ec) 81 mg PO DAILY insulin aspart U-100 [Novolog FlexPen U-100 Insulin] 100 unit/mL (3 mL) Insulin Pen 1 sliding scale dose SUBCUT USEASDIRECTD omega [id number] oil [Fish Oil] 1,000 mg (120 mg-180 mg) Capsule 1 cap PO DAILY Discharge Orders: Discharge Order (Routine); Ordered 06/21/23 Ordered By: Citlali iMller/Other Patient Handouts: Managing Type 2 Diabetes Admission Data Admit Date/Time: 06/19/23 07:07 Attending Provider: Karli,Manabendra Admit Provider: Manuelito Jiang Primary Care Provider: Juanito De Dios Other Providers: Manuelito Jiang ; Catie Mendez ; [facility] ; [facility] Other Interventions: Discharge Summary Assessment (RN) Last Done: 06/21/23 13:37
== END 2023-06-21 20:14 | disposition home health service (06) | DRG 897 ==
LOC: ED 22:48 → INTOOBSV 06-19 07:07 → EDINP 06-19 07:07 → SUATTDRO 06-19 07:07 → 2N 06-19 09:33